=== PATIENT | female | born 1965 | race Caucasian/White ===

== ENCOUNTER → 2020-01-31 | Outpatient (CLI) | payer MEDICARE ==
[~2020-01-31] MED LIST: ALBU8.5H8 INH; BALS750C14 PO; CYCL-259 PO; DICL50TA4 PO; LEVO5TAB29 PO; LEVO75TA5 PO; LIOT5TAB11 PO
[2020-01-31 15:35] LABS: BASOPHILS # (AUTO) 0.03 x10^3/uL (0-0.1); BASOPHILS % (AUTO) 1 % (0-1); EOSINOPHILS # (AUTO) 0.14 x10^3/uL (0-0.4); EOSINOPHILS % (AUTO) 2 % (1-7); LYMPHOCYTES % (AUTO) 44 % (22-44); MD NO; MEAN CORPUSCULAR HGB CONC 32.7 g/dL (32.4-35.8); MEAN CORPUSCULAR VOLUME 94.7 fL (80-100); MONOCYTES # (AUTO) 0.45 x10^3/uL (0.2-0.8); MONOCYTES % (AUTO) 8 % (2-9); NEUTROPHILS # (AUTO) 2.64 x10^3/uL (1.8-6.8); NEUTROPHILS % (AUTO) 45 % (42-75); PLATELET COUNT 316 x10^3/uL (130-400); RED BLOOD COUNT 4.28 x10^6/uL (3.82-5.3); RED CELL DISTRIBUTION WIDTH 14.4 % (9.6-15.2)
== END | disposition home or self-care (01) ==
LOC: STAR 14:08
PROVIDERS: ATTEND Surgery
DX: Z01.818 Encounter for other preprocedural examination (principal); Z01.812 Encounter for preprocedural laboratory examination; C50.811 Malignant neoplasm of overlapping sites of right female breast
CPT/HCPCS: 36415; 85025; 93005

== ENCOUNTER 2020-03-10 14:34 | Day surgery (SDC) | payer MEDICARE ==
[~2020-03-10] VITALS: Ht 152.4 cm; Wt 75.9 kg
[~2020-03-10 14:34] MED LIST changes: +FLUO20CA19 PO; +propranolol PO
[2020-03-10] MEDS ORDERED: LACTATED RINGERS 1,000 ML IV SCH ×2 (15:08→20:30)
[2020-03-10 15:30] VITALS: BP 109/70
[2020-03-10] MEDS ORDERED: PLEASE ENTER HEIGHT AND WEIGHT MC SCH (15:30)
[2020-03-10] MEDS ORDERED: CHLORHEXIDINE 15 ML UDC MM ONE (15:30)
[2020-03-10] MEDS ORDERED: BUPIVACAINE/PF-EPI 0.5% 1:200K ONE (15:48)
[2020-03-10] MEDS ORDERED: FENTANYL PF 250 MCG/5ML ONE (16:09)
[2020-03-10] MEDS ORDERED: DEXAMETHASONE 4 MG/ML, 1ML ONE (16:09)
[2020-03-10] MEDS ORDERED: MIDAZOLAM 1 MG/ML, 2ML ONE ×2 (16:09→17:33)
[2020-03-10] MEDS ORDERED: ONDANSETRON 2MG/ML, 2ML ONE (16:09)
[2020-03-10] MEDS ORDERED: LIDOCAINE-MPF 2% ,5ML ONE (16:09)
[2020-03-10] MEDS ORDERED: PROPOFOL 10 MG/ML, 20ML ONE (16:09)
[2020-03-10] MEDS ORDERED: GLYCOPYRROLATE 0.2MG/1ML, 5ML ONE (16:09)
[2020-03-10] MEDS ORDERED: LORazepam 2 MG/ML, 1ML IVPush PRN (16:30)
[2020-03-10] MEDS ORDERED: OXYcodone 5 MG/5 ML ORAL.SOL UDC PO PRN (16:30)
[2020-03-10] MEDS ORDERED: hydrALAzine 20 MG/ML, 1ML IV PRN (16:30)
[2020-03-10] MEDS ORDERED: DIAZEPAM 5 MG/ML, 2ML IVPush PRN (16:30)
[2020-03-10] MEDS ORDERED: HALOPERIDOL 5 MG/ML IV PRN (16:30)
[2020-03-10] MEDS ORDERED: KETOROLAC 30 MG/1 ML IVPush PRN (16:30)
[2020-03-10] MEDS ORDERED: HYDROmorphone 1 MG/ML, 1ML INJ IVPush PRN (16:30)
[2020-03-10] MEDS ORDERED: HYDROcodone/APAP 7.5-325MG/15ML UDC PO PRN (16:30)
[2020-03-10] MEDS ORDERED: EPHEDRINE 50 MG/ML, 1ML IVPush PRN (16:30)
[2020-03-10] MEDS ORDERED: ACETAMINOPHEN 325 MG TABLET PO PRN (16:30)
[2020-03-10] MEDS ORDERED: LABETALOL 5MG/ML, 20ML IV PRN (16:30)
[2020-03-10] MEDS ORDERED: MEPERIDINE/PF 25MG/0.5ML IVPush PRN (16:30)
[2020-03-10] MEDS ORDERED: MIDAZOLAM 1 MG/ML, 2ML IV PRN (16:30)
[2020-03-10] MEDS ORDERED: METOCLOPRAMIDE 5 MG/ML, 2ML IVPush PRN (16:30)
[2020-03-10] MEDS ORDERED: FENTANYL PF 100 MCG/2ML IV PRN (16:30)
[2020-03-10] MEDS ORDERED: DIPHENHYDRAMINE 50 MG/ML, 1ML IVPush PRN ×2 (16:30→20:30)
[2020-03-10] MEDS ORDERED: EPHEDRINE 50 MG/ML, 1ML IM PRN (16:30)
[2020-03-10] MEDS ORDERED: ALBUTEROL/IPRATROPIUM 2.5MG/0.5MG, 3 ML NPPB PRN (16:30)
[2020-03-10] MEDS ORDERED: ONDANSETRON 2MG/ML, 2ML IVPush PRN ×2 (16:30→20:30)
[2020-03-10] MEDS ORDERED: LABETALOL 5MG/ML, 20ML ONE (16:43)
[2020-03-10] MEDS ORDERED: KETOROLAC 30 MG/1 ML ONE (17:31)
[2020-03-10] MEDS ORDERED: METOCLOPRAMIDE 5 MG/ML, 2ML ONE (17:31)
[2020-03-10] MEDS ORDERED: CEFAZOLIN 1,000 MG ONE (17:31)
[2020-03-10] MEDS ORDERED: ROCURONIUM 10 MG/ML,10ML ONE (17:31)
[2020-03-10] MEDS ORDERED: FENTANYL PF 100 MCG/2ML ONE (19:09)
[2020-03-10] MEDS ORDERED: OXYcodone 5 MG/5 ML ORAL.SOL UDC ONE (19:10)
[2020-03-10] MEDS ORDERED: MEPERIDINE/PF 25MG/ML,1ML ONE (19:12)
[2020-03-10] MEDS ORDERED: ONDA4TAB7 PO (20:06)
[2020-03-10] MEDS ORDERED: CEPH-368 PO (20:07)
[2020-03-10] MEDS ORDERED: OXYcodone/APAP 5/325MG TABLET PO PRN (20:30)
[2020-03-10] MEDS ORDERED: HYDROmorphone 2 MG/ML, 1ML IV PRN (20:30)
== END 2020-03-10 21:00 | disposition home or self-care (01) ==
LOC: OUT 14:34 → 4NE 19:54 → OUT 21:00
PROVIDERS: ATTEND Plastic Surgery
DX: T85.41XA Breakdown (mechanical) of breast prosthesis and implant, initial encounter (principal); Z11.59 Encounter for screening for other viral diseases; F41.9 Anxiety disorder, unspecified; J44.9 Chronic obstructive pulmonary disease, unspecified; Z79.890 Hormone replacement therapy; Z79.899 Other long term (current) drug therapy; Z85.3 Personal history of malignant neoplasm of breast; Z88.2 Allergy status to sulfonamides; Z91.040 Latex allergy status; Z90.11 Acquired absence of right breast and nipple; Z90.710 Acquired absence of both cervix and uterus; Z98.890 Other specified postprocedural states; Y83.8 Other surgical procedures as the cause of abnormal reaction of the patient, or of later complication, without mention of misadventure at the time of the procedure
CPT/HCPCS: 11971; 14301; 14302; 87635; J0690; J1100; J1885; J2175; J2250; J2405; J2704; J2765; J3010; J7120; G0378